=== PATIENT | female | born 1950 | race Caucasian/White ===

== ENCOUNTER → 2016-11-07 | Day surgery (SDC) | payer MEDICARE ==
[2016-04-26 05:27] VITALS: BMI 15.5
[~2016-11-07] MED LIST: CEFAZOLIN 1 GM VIAL ONE; DEXAMETHASONE 4 MG/ML VIAL IV ONE; FENTANYL 100 MCG/2 ML VIAL IV PRN; FENTANYL 250 MCG/5 ML VIAL IV ONE; Gentamicin 80 mg/50 ml NaCl 80 MG/50 ML RTU IV ONE; HYDROmorphone 1 MG INJECTION IV PRN; ISOVUE-300 (61%) 50 ML ONE; LABETALOL 20 MG/4 ML SYRINGE IV PRN; LIDOCAINE 100 MG PFS IV ONE; MEPERIDINE 25 MG/ML TUBEX IV PRN; ONDANSETRON HCL 4 MG ODT TAB PO PRN; ONDANSETRON HCL 4 MG/2 ML VIAL IV ONE; ONDANSETRON HCL 4 MG/2 ML VIAL IV PRN; PROMETHAZINE 25 MG/ML VIAL IV PRN; PROPOFOL 200 MG/20 ML VIAL IV ONE; SUCCINYLCHOLINE 20 MG/1 ML INJ 10 ML MDV IV ONE; hydrALAZINE 20 MG/ML VIAL IV PRN
[2016-11-07 08:16] LABS: MPV 9.7 fL (7.4-10.4)
[2016-11-07 08:22] LABS: BLOOD UREA NITROGEN 21 MG/DL (7-17); CALC CORRECTED 8.7 MG/DL (8.4-10.2); CALCIUM 8.2 MG/DL (8.4-10.2); CALCULATED OSMOLALITY 277 MOs/Kg (270-290); CHLORIDE 119 mEq/L (98-107); GLUCOSE 80 MG/DL (70-99); SODIUM LEVEL 143 mEq/L (137-146); TOTAL PROTEIN 7.1 G/DL (6.3-8.2)
--- NOTE | 2016-11-07 08:38 | SC.ANESPOS ---
Post-Anesthesia Note LOC: Fully Awake Post-Anesthesia Assessment: Awake, Returned to Baseline, Hemodynamically Stable , Pain Control Adequate Phase I & II Recovery Complete: Yes Apparent Anesthesia Complication: No : N - Vital Signs Blood Pressure: 196/81 Pulse: 53 Resp Rate: 18 O2 Sat: 100 Temp: 97.5 F
--- NOTE | 2016-11-07 08:41 | HIM.ANES ---
Anesthesia Evaluation & Plan Diagnoses: UNSPECIFIED HYDRONEPHROSIS (11/07/16) CALCULUS OF KIDNEY (11/07/16) UNSPECIFIED ABDOMINAL PAIN (11/07/16) UNSPECIFIED CONVULSIONS (11/07/16) Consented Procedure: CYSTOSCOPY, LEFT RETROGRADE PYELOGRAM,POSSIBLE URETERSCOPY, EXCHANGE OF DOUBLE J STENT - Focused Review of Systems Cardiac History: Yes: Hx Hypertension, Hx Cardiac Catheterization (2010), Hx Cardia Arrhythmia (PVC'S), Hx Cardiac Disorders, Hx Abnormal Cholesterol/ Hyperlipidemia HEENT: Yes: Hx Dysphagia (ESOPHAGEAL STRICTURE), Hx Vision Problem ( PRESCRIPTION GLASSES), Other HEENT Problems Respiratory: Yes: Hx Emphysema, Hx Chronic Obstructive Pulmonary Disease (COPD) , Hx Snoring, Hx Pneumonia (09/2015) Gastrointestinal: Yes: Hx Gastroesophageal Reflux Disease (Controlled), Hx Gastrointestinal Disorders, Hx Colonoscopy, Hx Endoscopy Genitourinary: Yes: Hx Renal Disease (CKD STAGE 3) Neurological/Musculoskeletal: Yes: HX Cerebrovascular Accident, Hx Alzheimer's Disease (dx 1999), Hx Dementia (Alzheimer's), Hx Seizures (temporal lobe epilepsy LAST SEIZURE 2014), Hx Back Pain (LUMBAR), Hx Neurological Disorders Psychological: Yes Hx Anxiety, Yes Hx Depression, Yes Hx Mental/Emotional Disorders HX Other Psyco/Soc Problems: INSOMNIA Blood/Autoimmune: Yes: Hx Blood Transfusions, Hx Anemia (iron deficiency) No: Hx AIDS, Hx Hepatitis (type) Smoking Status: Heavy tobacco smoker (5 or more cigarettes/day or daily pipe/ cigar) Past Social History: Denies: Substance Use Disorder Hx Stress Test (date): Yes (10 YRS) Hx Echocardiogram (date): Yes (02/08/2011 LVEF 69% MILD AVR) Hx Chest Xray (date): Yes (09/23/2015) Surgical History: Yes: Ureter Stent (MULTIPLE STENT EXCHANGES), Knee (RT KNEE ARTHROSCOPIC SURGERY), Other (Numerous urological surgeries including bladder augmentation and stents.) Other Surgical History: URETER STENTS 2016 BLADDER REVISION - Focused Physical Exam NPO since: 11/06/16 2100 Mallampati: Class II Thyromental Distance: Greater than 3 Neck: Full Range of Motion Dental: Other (Many missing) Cardiovascular/Chest: Normal Respiratory: Lungs clear Any problems with anesthesia, including nausea and vomiting?: Yes (Nausea & Vomiting) Any relatives with a history of Malignant Hyperthermia?: No Does patient have a history of Malignant Hyperthermia?: No Beta Reba given (if appropriate): Yes Other: Problem List Problem Status Onset Sepsis Acute Toxic encephalopathy Acute Alzheimer's dementia without behavioral disturbance Chronic Anemia, chronic disease Chronic BILATERAL TEMPORAL LOBE EPILEPSY Chronic Benign hypertensive heart disease without heart failure Chronic Chronic kidney disease, stage III (moderate) Chronic Epilepsy, temporal lobe Chronic History of Clostridium difficile infection Chronic Hyponatremia Chronic Neurogenic bladder Chronic CBC/BMP/Other 11/07/16 08:00 11/07/16 08:00 Allergies Allergy/AdvReac Type Severity Reaction Status Date / Time codeine [Codeine] Allergy Mild Nausea/Vomi Verified 06/06/16 08:54 ting latex Allergy Mild Itching Verified 06/06/16 08:54 MARY Inhibitors Allergy Nausea/Vomi Verified 06/06/16 08:54 ting levofloxacin [From Levaquin] Allergy Nausea/Vomi Verified 06/06/16 08:54 ting Home Medications Medication Instructions Recorded Last Taken Type Donepezil HCl [Aricept] 10 mg PO HS 02/18/14 11/06/16 22:00 History Carvedilol [Coreg] 6.25 mg PO BID 10/13/14 11/07/16 06:00 History Atorvastatin Calcium [Lipitor] 10 mg PO DAILY 11/24/14 11/06/16 22:00 History Phenytoin Sodium Extended 200 mg PO HS 06/04/16 11/07/16 06:00 History [Dilantin] Oxycodone Immediate Release 5 mg PO Q4-6H PRN 06/06/16 11/06/16 22:00 History [Oxycodone Immediate Release (OxyIR)] Memantine HCl 10 mg PO BID 11/02/16 11/06/16 22:00 History Height and Weight Patient's height 5 ft 1 in Patient's weight 85 lb BMI 15.5 Vital Signs Temperature 97.5 F 11/07/16 08:38 Pulse Rate 53 L 11/07/16 08:38 Respiratory Rate 18 11/07/16 08:38 Blood Pressure 196/81 H 11/07/16 08:38 Pulse Oxygen Saturation 100 11/07/16 08:38 - Anesthetic Plan Anesthesia Type: General ASA Class: 3 -: I have examined this patient and reviewed the medical record. The patient has been assessed prior to anesthesia. Risks and benefits of anesthesia and anesthetic technique options have been discussed and all questions answered. The patient accepts the risk and desires me to proceed with the planned anesthetic.
--- NOTE | 2016-11-07 08:49 | CAPUEKG ---
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
--- NOTE | 2016-11-07 10:25 | HIMOPRPT ---
PROCEDURE: DATE OF PROCEDURE: 11/07/16 PREOPERATIVE DIAGNOSIS: Left hydronephrosis and ureteral stricture. POSTOPERATIVE DIAGNOSIS: Left hydronephrosis and ureteral stricture. PROCEDURE PERFORMED: Cystoscopy, left retrograde pyelogram, and stent exchange. SURGEON: Tyrel Arroyo MD ANESTHESIA USED: General. INDICATION FOR PROCEDURE: The patient is an 66 WHITE F with a history of bladder augmentation and left ureteral stricture. She is brought in now for stent exchange . PROCEDURE IN DETAIL: The patient was brought into the operating room, placed on the table in the supine position. After adequate general anesthesia was achieved , the patient was carefully placed in dorsal lithotomy and the perineum prepped and draped in sterile fashion for the performance of cystoscopy. Initially, the 23-Beninese scope was passed with the obturator, obturator was removed, working element placed. Inspection revealed the bladder augmentation to be intact and no lesions noted. Previously placed stent was visualized. A Nitinol wire was then able to be worked next to the stent up the ureter and it was seen to curl fluoroscopically in the kidney. The wire then remained in place. Then, graspers were placed and the previously placed stent was removed intact and easily. The wire was then back loaded onto the cystoscope, open-ended catheter then placed over the wire up into the kidney. The wire was removed and using 4-6 cc of contrast, retrograde pyelogram was obtained, which showed the calices to be hydronephrotic as well as the pelvis. Previously, the patient has had a 6-Beninese 20 cm stent, so I removed the open- ended catheter, wire remained in place. Over the wire, then the 6-Beninese 20 cm stent was placed, it was seen to curl fluoroscopically in the kidney and then visually in the bladder. At this point, then the procedure was terminated. The bladder was filled. Cystoscope removed. A 16-Beninese Griffith placed to drain the bladder. The patient tolerated all this well. The patient was then awakened and taken to the recovery room in good condition.
[2016-11-07 15:19] VITALS: BP 196/81; PULSE 53; TEMP 97.5
== END ==
LOC: SDC 07:27
PROVIDERS: ATTEND Urology
PROC: BT1F1ZZ Fluoroscopy of Left Kidney, Ureter and Bladder using Low Osmolar Contrast (ICD-10-PCS; 2016-11-07)
PROC: 0TP98DZ Removal of Intraluminal Device from Ureter, Via Natural or Artificial Opening Endoscopic (ICD-10-PCS; 2016-11-07)
PROC: 0T778DZ Dilation of Left Ureter with Intraluminal Device, Via Natural or Artificial Opening Endoscopic (ICD-10-PCS; principal; 2016-11-07 09:20)
DX: N13.1 Hydronephrosis with ureteral stricture, not elsewhere classified (principal); E78.00 Pure hypercholesterolemia, unspecified; Z86.718 Personal history of other venous thrombosis and embolism; Z79.02 Long term (current) use of antithrombotics/antiplatelets; F17.210 Nicotine dependence, cigarettes, uncomplicated; Z79.899 Other long term (current) drug therapy
CPT/HCPCS: 52332; 80053; 85027; 87077; 87086; 87186; 93005; J0330; J0690; J1100; J1580; J2001; J2405; J3010; J3490

== ENCOUNTER 2016-11-19 17:01 | Emergency (ER) | payer MEDICARE ==
[2016-11-19 17:01] VITALS: BMI 15.5
[2016-11-19 17:31] VITALS: TEMP 98.6
[2016-11-19 17:53] LABS: LEUKOCYTES/URINE 3+ (NEGATIVE); NITRITE/URINE NEG (NEGATIVE); URINE OCCULT BLOOD 1+ (NEG/TRACE)
[2016-11-19 18:00] LABS: WBC/URINE TNTC (0-5)
[2016-11-19] MEDS ORDERED: HYDROmorphone 1 MG INJECTION IV ONE ×2 (18:44→21:03)
[2016-11-19] MEDS ORDERED: ONDANSETRON HCL 4 MG/2 ML VIAL IV ONE (18:44)
[2016-11-19] MEDS ORDERED: Pharmacy Review for Metformin - IV Contrast Given SCH (19:00)
[2016-11-19 19:26] LABS: AUTOMATED BASOPHIL 0.6 % (0-2); AUTOMATED EOSINOPHIL 1.6 % (0-5); AUTOMATED LYMPH 30.1 % (17-44); AUTOMATED NEUTROPHIL 60.7 % (45-76); MPV 11.2 fL (7.4-10.4)
--- NOTE | 2016-11-19 19:28 | EDPRACDOC ---
- General Information Chief Complaint: Female Urogenital Problems Stated Complaint: ABDOMINAL PAIN Time Seen by Provider: 11/19/16 18:38 Information Source: Patient Home Medications: Home Medications Donepezil HCl [Aricept] 10 mg PO HS 02/18/14 Carvedilol [Coreg] 6.25 mg PO BID 10/13/14 Atorvastatin Calcium [Lipitor] 10 mg PO QHS 11/24/14 Phenytoin Sodium Extended [Dilantin] 200 mg PO QHS 06/04/16 Memantine HCl 10 mg PO BID 11/02/16 Ciprofloxacin HCl [Cipro] 250 mg PO BID #10 tab 11/19/16 Citalopram Hydrobromide [Celexa] 40 mg PO QHS 11/19/16 Hydrocodone Bit/Acetaminophen [Desha 5-325 Tablet] 1 tab PO BID PRN 11/19/16 Montelukast Sodium [Singulair] 10 mg PO QHS 11/19/16 Ondansetron HCl [Zofran] 4 mg PO Q6H PRN #20 tab 11/19/16 Oxycodone HCl/Acetaminophen [Percocet 7.5-325 mg Tablet] 1 each PO Q6 #10 tablet 11/19/16 Tamsulosin HCl [Flomax] 0.4 mg PO QAM #30 cap.er.24h 11/19/16 Allergies/Adverse Reactions: Allergies Allergy/AdvReac Type Severity Reaction Status Date / Time codeine [Codeine] Allergy Mild Nausea/Vomi Verified 11/19/16 17:30 ting latex Allergy Mild Itching Verified 11/19/16 17:30 MARY Inhibitors Allergy Nausea/Vomi Verified 11/19/16 17:30 ting levofloxacin [From Levaquin] Allergy Nausea/Vomi Verified 11/19/16 17:30 ting nitrofurantoin Allergy Nausea/Vomi Verified 11/19/16 18:50 [From Macrobid] ting - History of Present Illness HPI: PT PRESENTS TODAY WITH RIGHT FLANK PAIN X [address] PT [address] FAJARDO TO HAVE DOUBLE J STENT PLACEMENTS EVERY 6 MONTHS IN THE LEFT URETER AND HAS PMH OF BLADDER AUGMENTATION. PT OCCASIONALLY NEEDS TO SELF CATHS D/T THIS. PT DENIES FEVER, CP, SHOB, ABD PAIN, DIARRHEA, HEMATURIA/DYSURIA. PT APPEARS UNCOMFORTABLE. Onset: 1 DAY Urinary Pain Location: Reports: Right Flank Symptom Onset: Reports: Gradual Pain Severity: Severe Pain Quality: Reports: Sharp, Stabbing History of: Reports: Recent Post-op : No Oral Intake: Normal Urinary Output: Normal Associated Signs and Symptoms: Reports: Flank Pain, Nausea, Vomiting ED Past Medical History - History Reviewed Yes Nurses notes reviewed and agree except as marked - Patient Medical History Neurological History: Reports: Cerebrovascular Accident, Seizures (temporal lobe epilepsy LAST SEIZURE 2014), Dementia (Alzheimer's) Cardiac History: Reports: Hypertension, Cardiac Catheterization (2010), Hypercholesterolemia Respiratory History: Reports: COPD, Pneumonia (09/2015), Emphysema GI/ History: Reports: Renal Disease (CKD STAGE 3), Urinary Tract Infection ( frequent), Kidney Stones Musculoskeletal History: Reports: Arthritis (osteoarthritis), Osteoarthritis Psychological History: Reports: Depression, Anxiety. Denies: Substance Use Disorder Systemic History: Reports: Anemia (iron deficiency). Denies: Cancer Surgical History: Reports: Hysterectomy, Cardiac Catheterization (2010), Hernia Surgery (RIGHT INGUINAL), Other (Numerous urological surgeries including bladder augmentation and stents.) - Family Medical History Reports: Hypertension (siblings), Cancer (BROTHERS- lung), Cardiac Disorders ( brother). Denies: Diabetes, Stroke - Social Medical History Smoking Status: Heavy tobacco smoker (5 or more cigarettes/day or daily pipe/ cigar) Social History: Denies: Substance Use Disorder EDM Review of Systems - Review of Systems ROS Negative Except as Marked: Yes All systems reviewed and were negative except as marked Constitutional: No Symptoms Reported Respiratory: No Symptoms Reported Cardiovascular: No Symptoms Reported Gastrointestinal: Nausea, Vomiting Genitourinary: Flank Pain, Other Neurological: No Symptoms Reported Musculoskeletal: No Symptoms Reported Integumentary: No Symptoms Reported - Physical Exam Constitutional: Alert, Distress Oriented to: Time, Person, Place Last recorded Vital Signs: Last Vital Signs Temp 98.6 F 11/19/16 17:28 Pulse 78 11/19/16 19:01 Resp 18 11/19/16 19:01 BP 182/81 H 11/19/16 19:01 Pulse Ox 98 11/19/16 19:01 Oxygen Pulse Oxygen Saturation 98 O2 Device Room Air Oxygen Flow Rate Fraction of Inspired Oxygen ( FIO2) - HEENT Head: Normal Eye Exam: Normal Neck: Normal, Denies Pain, Midline - Respiratory/Cardiovascular Respiratory: Normal - CTA Cardiovascular: Normal - GI Auscultation: Normal Palpation: Normal Tenderness: Non tender - Musculoskeletal Back: CVA Tenderness Extremities: Normal - Integumentary Skin: Normal Lymphatics: Normal - Neurologic Cerebellar: Normal Mood Description: Appropriate Thought: Coherent Perception: Normal - Re-evaluation Re-evaluation 1 Re-evaluation Time: 21:44 PT RESTING. - Results 11/19/16 18:52 11/19/16 18:52 Urine Color Yellow 11/19/16 17:38 Urine Clarity Cldy 11/19/16 17:38 Urine pH 7.0 (5.0-8.0) 11/19/16 17:38 Ur Specific [place] 1.010 11/19/16 17:38 Urine Protein 2+ (NEG/TRACE) H 11/19/16 17:38 Urine Glucose (UA) Neg (NEGATIVE) 11/19/16 17:38 Urine Ketones Neg (NEGATIVE) 11/19/16 17:38 Urine Occult Blood 1+ (NEG/TRACE) H 11/19/16 17:38 Urine Nitrite Neg (NEGATIVE) 11/19/16 17:38 Urine Bilirubin Neg (NEGATIVE) 11/19/16 17:38 Urine Urobilinogen 0.2 MG/DL (0-1) 11/19/16 17:38 Ur Leukocyte Esterase 3+ (NEGATIVE) H 11/19/16 17:38 Urine WBC Tntc (0-5) H 11/19/16 17:38 Urine WBC Clumps Present (NONE) H 11/19/16 17:38 Ur Epithelial Cells 2+ 11/19/16 17:38 Urine Bacteria 1+ (NEG/FEW) H 11/19/16 17:38 Lab Results 11/19/16 17:38 Urine Color Yellow Urine Clarity Cldy Urine pH 7.0 Ur Specific [place] 1.010 Urine Protein 2+ H Urine Glucose (UA) Neg Urine Ketones Neg Urine Occult Blood 1+ H Urine Nitrite Neg Urine Bilirubin Neg Urine Urobilinogen 0.2 Ur Leukocyte Esterase 3+ H Urine WBC Tntc H Urine WBC Clumps Present H Ur Epithelial Cells 2+ Urine Bacteria 1+ H - Additional Information DR. FAJARDO CALLED BACK AND ADVISED THAT PT PRIMARY PROBLEM IS THAT SHE DOES NOT DRINK ENOUGH WATER. ADVISED TO GIVE FLUID BOLUSES WITH FLOMAX AND HAVE KUB DONE. WILL FOLLOW UP IN OFFICE TOMORROW. - Departure Disposition: Home Condition: Stable Final Diagnosis: Urolithiasis Qualifiers: Urinary calculus location: ureter Qualified Code(s): N20.1 - Calculus of ureter Instructions: Kidney Stones (ED) Education/Counseling Given To: Patient Education/Counseling Given Regarding: Diagnosis, Treatment, Follow Up Referrals: Brenton Stinson MD [Primary Care Provider] - One Week Tyrel Fajardo MD [Staff Physician] - One Week Prescriptions: Ciprofloxacin HCl [Cipro] 250 mg PO BID #10 tab Ondansetron HCl [Zofran] 4 mg PO Q6H PRN #20 tab PRN Reason: Nausea/Vomiting Oxycodone HCl/Acetaminophen [Percocet 7.5-325 mg Tablet] 1 each PO Q6 #10 tablet Tamsulosin HCl [Flomax] 0.4 mg PO QAM #30 cap.er.24h Additional Instructions: DRINK PLENTY OF WATER AND BE SURE TO FOLLOW UP WITH DR. FAJARDO TOMORROW. - Physician Consulted Urology Time Called: 19:55 Provider Called: Tyrel Fajardo Time Surveillance Sensor Operator Returned Call: 20:34
--- NOTE | 2016-11-19 19:37 | DIRPT ---
CLINICAL DATA: Right flank pain for 1 day. No hematuria. History of stones. Patient with a double-J ureteral stent on the left. EXAM: CT ABDOMEN AND PELVIS WITHOUT CONTRAST TECHNIQUE: Multidetector CT imaging of the abdomen and pelvis was performed following the standard protocol without IV contrast. COMPARISON: 09/28/2015. Retrograde ureteral pyelogram, 11/07/2016. FINDINGS: Lung bases: But clear. Heart normal in size. Liver and spleen: Calcified granuloma. Otherwise unremarkable. There are gallbladder, pancreas, adrenal glands: Unremarkable. Kidneys, ureters, bladder: Moderate dilation of left intrarenal collecting system despite presence of a left ureteral stent. Distal loop of stent lies along the posterior superior aspect of the bladder. The bladder is deviated to the right side of the pelvis. It diffuse left renal cortical thinning. No convincing left renal mass. Some calcification along the upper pole the left kidney may be parenchymal or in the collecting system. Mild dilation there in the right collecting system. There is a 4 mm elongated stone in the proximal to mid right ureter no significant ureteral dilation. No other ureteral stone. No bladder mass or stone. Uterus and adnexa: Uterus surgically absent. No adnexal/ pelvic masses. Lymph nodes: No adenopathy. Ascites: None. Gastrointestinal moderate increased stool in the colon. No colonic wall thickening or inflammatory changes. There changes from previous right colon surgery, stable. No bowel obstruction. Stomach and small bowel are unremarkable. Musculoskeletal: Unremarkable. IMPRESSION: 1. 4 mm of elongated stone in the proximal to mid right ureter causes mild right hydronephrosis. This is consistent this patient's right sided symptoms. 2. Left renal cortical thinning and moderate left renal collecting system dilation despite presence of the left double-J ureteral stent. This is similar to what was present on the prior CT. Distal aspect of the stent lies along the posterior superior margin of the bladder. 3. No other evidence of acute abnormality. Electronically Signed By: Thai Holden M.D. On: 11/19/2016 19:35
[2016-11-19 19:47] LABS: CALCIUM 8.3 MG/DL (8.4-10.2); CREATININE 1.4 MG/DL (0.52-1.04); TOTAL PROTEIN 6.7 G/DL (6.3-8.2)
[2016-11-19] MEDS ORDERED: CIPROFLOXACIN HCL 500 MG TAB PO ONE (20:35)
[2016-11-19] MEDS ORDERED: TAMSULOSIN HCL 0.4 MG CAP PO ONE (20:35)
[2016-11-19] MEDS: NS 1,000 ML IV SCH ×2 (20:50→22:39)
--- NOTE | 2016-11-19 20:55 | DIRPT ---
CLINICAL DATA: Right flank pain for 3 days. EXAM: ABDOMEN - 1 VIEW COMPARISON: CT 11/19/2016 FINDINGS: Left ureteral stent remains in stable position. The previously seen small 4 mm proximal to mid right ureteral stone cannot be visualized by plain film. Nonobstructive bowel gas pattern. No organomegaly or free air. Surgical clips in the pelvis. Left iliac stent noted. IMPRESSION: Unable to visualize the small 4 mm right ureteral stone seen on prior CT. Electronically Signed By: Ever Brenner M.D. On: 11/19/2016 20:52
[2016-11-19] MEDS ORDERED: OXYCODONE HCL 5 MG TABLET PO ONE (23:36)
[2016-11-19 23:59] VITALS: BP 150/81; PULSE 66
== END 2016-11-19 23:59 | disposition home or self-care (01) ==
LOC: ED 17:01
DX: N20.1 Calculus of ureter (principal)
CPT/HCPCS: 36415; 74000; 74176; 80053; 81001; 85025; 87077; 87086; 96361; 96374; 96375; 96376; 99284; A9270; J1170; J2405; 87186; J3490

== ENCOUNTER 2016-11-26 09:43 | Emergency (ER) | payer MEDICARE ==
[2016-11-26 10:04] VITALS: TEMP 98.1; BMI 15.7
--- NOTE | 2016-11-26 10:27 | EDPRACDOC ---
- General Information Chief Complaint: Shoulder Pain Stated Complaint: RT SHOULDER PAIN Time Seen by Provider: 11/26/16 10:15 Mode of Arrival: Car Home Medications: Home Medications Donepezil HCl [Aricept] 10 mg PO HS 02/18/14 Carvedilol [Coreg] 6.25 mg PO BID 10/13/14 Atorvastatin Calcium [Lipitor] 10 mg PO QHS 11/24/14 Phenytoin Sodium Extended [Dilantin] 200 mg PO QHS 06/04/16 Memantine HCl 10 mg PO BID 11/02/16 Citalopram Hydrobromide [Celexa] 40 mg PO QHS 11/19/16 Hydrocodone Bit/Acetaminophen [[place] 5-325 Tablet] 1 tab PO BID PRN 11/19/16 Montelukast Sodium [Singulair] 10 mg PO QHS 11/19/16 Cyclobenzaprine HCl [Flexeril] 5 mg PO TID PRN #15 tablet 11/26/16 Doxazosin Mesylate [Cardura] 2 mg PO .QAFTERNOON 11/26/16 Ibuprofen 400 mg PO Q6H PRN #30 tablet 11/26/16 Oxycodone HCl/Acetaminophen [Percocet 7.5-325 mg Tablet] 1 tab PO Q6 11/26/16 Prednisone [Deltasone, Orasone] 20 mg PO DAILY #20 tab 11/26/16 Allergies/Adverse Reactions: Allergies Allergy/AdvReac Type Severity Reaction Status Date / Time codeine [Codeine] Allergy Mild Nausea/Vomi Verified 11/26/16 10:04 ting latex Allergy Mild Itching Verified 11/26/16 10:04 MARY Inhibitors Allergy Nausea/Vomi Verified 11/26/16 10:04 ting levofloxacin [From Levaquin] Allergy Nausea/Vomi Verified 11/26/16 10:04 ting nitrofurantoin Allergy Nausea/Vomi Verified 11/26/16 10:04 [From Macrobid] ting - History of Present Illness Onset: LAST WEEK HPI: Pt c/o R posterior shoulder pain x 1 week after lifting granddaughter. C/o pain radiating to R arm. Denies neck pain, cp, sob, numbness. Description: Reports: With Use, At Rest Location: Reports: Right, Posterior Circumstances: Reports: Spontaneous, Lifting Relevant History: Reports: None Dominant Hand: Right Pain Severity: Moderate Able to Move Shoulder?: Yes Associated Signs & Symptoms: Reports: Arm pain ED Past Medical History - History Reviewed Yes Nurses notes reviewed and agree except as marked - Patient Medical History Neurological History: Reports: Cerebrovascular Accident, Seizures (temporal lobe epilepsy LAST SEIZURE 2014), Dementia (Alzheimer's) Cardiac History: Reports: Hypertension, Cardiac Catheterization (2010), Hypercholesterolemia Respiratory History: Reports: COPD, Pneumonia (09/2015), Emphysema GI/ History: Reports: Renal Disease (CKD STAGE 3), Urinary Tract Infection ( frequent), Kidney Stones Musculoskeletal History: Reports: Arthritis (osteoarthritis), Osteoarthritis Psychological History: Reports: Depression, Anxiety. Denies: Substance Use Disorder Systemic History: Reports: Anemia (iron deficiency). Denies: Cancer Surgical History: Reports: Hysterectomy, Cardiac Catheterization (2010), Hernia Surgery (RIGHT INGUINAL), Other (Numerous urological surgeries including bladder augmentation and stents.) - Family Medical History Reports: Hypertension (siblings), Cancer (BROTHERS- lung), Cardiac Disorders ( brother). Denies: Diabetes, Stroke - Social Medical History Smoking Status: Heavy tobacco smoker (5 or more cigarettes/day or daily pipe/ cigar) Social History: Denies: Substance Use Disorder ETOH: None Substance Abuse: None EDM Review of Systems - Review of Systems Constitutional: No Symptoms Reported. negative: Fever, Chills, Weakness, Fatigue, Loss of Appetite Respiratory: No Symptoms Reported. negative: Cough, Brassy Cough, Barky Cough, Shortness of Breath, Wheezing, Hemoptysis Cardiovascular: No Symptoms Reported. negative: Chest Pain, Palpitations, Syncope, Edema, Orthopnea, PND, Skin Mottling, Cyanosis Gastrointestinal: No Symptoms Reported. negative: Pain, Constipation, Nausea, Vomiting, Diarrhea, Melena, Formula Intolerance Neurological: No Symptoms Reported. negative: Headache, Dizziness, Seizure, Numbness, Weakness, Speech Difficulty, Gait Difficulty Musculoskeletal: Arm, Shoulder Integumentary: No Symptoms Reported. negative: Itching, Rash, Bruising, Wound Allergic/Immunologic: No Symptoms Reported. negative: Hives, Itching Hematologic: No Symptoms Reported. negative: Lymphadenopathy, Easy Bruising, Easy Bleeding Psychiatric: No Symptoms Reported. negative: Anxiety, Depression, Hallucinations, Insomnia, Suicidal - Physical Exam Constitutional: Alert Oriented to: Time, Person, Place Last recorded Vital Signs: Last Vital Signs Temp 98.1 F 01/24/17 10:01 Pulse 68 11/26/16 10:01 Resp 20 11/26/16 10:01 BP 176/77 11/26/16 10:01 Pulse Ox 97 11/26/16 10:01 Oxygen Pulse Oxygen Saturation 97 O2 Device Room Air Oxygen Flow Rate Fraction of Inspired Oxygen ( FIO2) - HEENT Head: Normal ( normocephalic) Eye Exam: Normal (PERRL, EOMI, Sclera white) Neck: Normal (FROM, trachea at midline) - Respiratory/Cardiovascular Respiratory: Normal - CTA (BBS clear to auscultation without adventitious sounds ) Cardiovascular: Normal (RRR without murmur, gallop or rub) - Musculoskeletal Back: Normal (Non-Tender) Extremities: Normal (Normal tone, Pulses 2+ No cyanosis or edema, FROM) - Integumentary Skin: Normal, Warm, Dry Lymphatics: Normal (no adenopathy) - Neurologic Memory Impaired: Normal Motor Function: Normal (Normal tone, Pulses 2+ No cyanosis or edema, FROM) Mood Description: Normal Perception: Normal ED Shoulder Problem Exam - Musculoskeletal Clavicle: Normal Shoulder: Tender (posterior) Drop arm test: Negative Impingement test: Negative Arm: Normal Distal Function/Circulation: Normal - Differential Diagnosis Cervical disc disease, Sprain - Diagnostic Imaging Shoulder Image interpreted by: Radiologist IMPRESSION: Stable surgical changes from partial distal clavicle resection. No acute bony findings. Decision Time to Discharge: 10:36 - Departure Disposition: Home Condition: Good Final Diagnosis: Cervical radiculopathy Sprain of right shoulder Qualifiers: Encounter type: initial encounter Shoulder sprain type: unspecified sprain Qualified Code(s): S43.401A - Unspecified sprain of right shoulder joint, initial encounter Instructions: RICE: Routine Care for Injuries, Cervical Radiculopathy (ED), Shoulder Sprain (ED) Education/Counseling Given To: Patient Education/Counseling Given Regarding: Diagnosis, Treatment, Follow Up Referrals: Brenton Stinson MD [Primary Care Provider] - One Week Fabricio Kellogg MD [Staff Physician] - One Week Prescriptions: Cyclobenzaprine HCl [Flexeril] 5 mg PO TID PRN #15 tablet PRN Reason: Muscle Spasms Ibuprofen 400 mg PO Q6H PRN #30 tablet PRN Reason: Pain Prednisone [Deltasone, Orasone] 20 mg PO DAILY #20 tab
--- NOTE | 2016-11-26 10:29 | DIRPT ---
CLINICAL DATA: Injured shoulder 1 week ago. Persistent pain. EXAM: RIGHT SHOULDER - 2+ VIEW COMPARISON: 07/17/2016 FINDINGS: Stable surgical changes from partial distal clavicle resection. The glenohumeral joint is maintained. No acute bony findings or destructive bony changes. The visualized right lung is clear and the visualized right ribs are intact. Remote healed rib fractures are noted. IMPRESSION: Stable surgical changes from partial distal clavicle resection. No acute bony findings. Electronically Signed By: Rose Lopez M.D. On: 11/26/2016 10:26
[2016-11-26 11:04] VITALS: BP 152/73; PULSE 71
== END 2016-11-26 10:50 | disposition home or self-care (01) ==
LOC: ED 09:43
DX: S43.401A Unspecified sprain of right shoulder joint, initial encounter (principal); X50.0XXA Overexertion from strenuous movement or load, initial encounter; M54.12 Radiculopathy, cervical region; F17.200 Nicotine dependence, unspecified, uncomplicated
CPT/HCPCS: 99284